=== PATIENT | female | born 1965 | race African-American/Black ===

== ENCOUNTER 2022-02-07 13:35 | Emergency (ER) | payer OTHER ==
[~2022-02-07] VITALS: Ht 165.1 cm; Wt 81.8 kg
[2022-02-07] MEDS ORDERED: TRI2515C TP (13:52)
[2022-02-07] MEDS ORDERED: IBUP-2759 PO (13:52)
[2022-02-07] MEDS ORDERED: GABA-1216 PO (13:52)
[2022-02-07] MEDS ORDERED: MELO-381 PO (13:52)
[2022-02-07] MEDS ORDERED: QUET25TA PO (13:52)
[2022-02-07] MEDS ORDERED: DEXAMETHASONE SOD PHOS 4 MG/ML 5 ML VIAL IM ONE (16:15)
[2022-02-07] MEDS ORDERED: KETOROLAC TROMETHAMINE 30 MG/ML VIAL IM ONE (16:15)
[2022-02-07 16:55] VITALS: BP 135/75
== END 2022-02-07 17:20 | disposition home or self-care (01) ==
LOC: EMS 13:39
DX: M54.31 Sciatica, right side (principal); F41.9 Anxiety disorder, unspecified; Z88.0 Allergy status to penicillin
CPT/HCPCS: 99284; 96372; J1100; J1885